=== PATIENT | female | born 1960 | race Two or more races ===

== ENCOUNTER → 2020-05-30 | Outpatient (CLI) | payer OTHER | END | disposition home or self-care (01) | LOC: STAR 08:49 | PROVIDERS: ATTEND Anesthesiology | DX: Z20.828 Contact with and (suspected) exposure to other viral communicable diseases (principal) | CPT/HCPCS: 87635 ==

== ENCOUNTER 2020-06-05 09:56 | Day surgery (SDC) | payer OTHER ==
[~2020-06-05] VITALS: Ht 157.5 cm; Wt 97.4 kg
[2020-06-05 10:12] VITALS: BP 140/89
[2020-06-05] MEDS ORDERED: CHLORHEXIDINE 15 ML UDC MM STA (10:15)
[2020-06-05] MEDS ORDERED: LACTATED RINGERS 1,000 ML IV SCH (10:30)
[2020-06-05] MEDS ORDERED: LIDOCAINE/PF 1%, 30ML ONE (10:31)
[2020-06-05] MEDS ORDERED: BUPIVACAINE/PF-EPI 0.5% 1:200K ONE (10:31)
[2020-06-05] MEDS ORDERED: NO MEDS (10:44)
[2020-06-05] MEDS ORDERED: MIDAZOLAM 1 MG/ML, 2ML ONE (12:16)
[2020-06-05] MEDS ORDERED: FENTANYL PF 100 MCG/2ML ONE ×3 (12:16→13:41)
[2020-06-05] MEDS ORDERED: CEFAZOLIN 1,000 MG ONE (12:17)
[2020-06-05] MEDS ORDERED: ONDANSETRON 2MG/ML, 2ML ONE (12:17)
[2020-06-05] MEDS ORDERED: PROPOFOL 10 MG/ML, 20ML ONE (12:17)
[2020-06-05] MEDS ORDERED: KETOROLAC 30 MG/1 ML ONE (12:54)
[2020-06-05] MEDS ORDERED: OXYcodone 5 MG/5 ML ORAL.SOL UDC ONE (12:54)
[2020-06-05] MEDS ORDERED: DIAZEPAM 5 MG/ML, 2ML IVPush PRN (13:00)
[2020-06-05] MEDS ORDERED: MEPERIDINE/PF 25MG/0.5ML IVPush PRN (13:00)
[2020-06-05] MEDS ORDERED: DIPHENHYDRAMINE 50 MG/ML, 1ML IVPush PRN (13:00)
[2020-06-05] MEDS ORDERED: ACETAMINOPHEN 325 MG TABLET PO PRN (13:00)
[2020-06-05] MEDS ORDERED: PROMETHAZINE 25 MG/ML, 1ML IVPush PRN (13:00)
[2020-06-05] MEDS ORDERED: KETOROLAC 30 MG/1 ML IVPush PRN (13:00)
[2020-06-05] MEDS ORDERED: OXYcodone 5 MG/5 ML ORAL.SOL UDC PO PRN (13:00)
[2020-06-05] MEDS ORDERED: HYDROmorphone 1 MG/ML, 1ML INJ IVPush PRN (13:00)
[2020-06-05] MEDS ORDERED: ONDANSETRON 2MG/ML, 2ML IVPush PRN (13:00)
[2020-06-05] MEDS: FENTANYL PF 100 MCG/2ML IV PRN ×4 (13:25→13:52)
== END 2020-06-05 16:50 | disposition home or self-care (01) ==
LOC: OUT 09:56
PROVIDERS: ATTEND Orthopaedic Surgery
DX: S83.242A Other tear of medial meniscus, current injury, left knee, initial encounter (principal); S83.282A Other tear of lateral meniscus, current injury, left knee, initial encounter; M22.42 Chondromalacia patellae, left knee; Z79.899 Other long term (current) drug therapy; X58.XXXA Exposure to other specified factors, initial encounter; W01.0XXA Fall on same level from slipping, tripping and stumbling without subsequent striking against object, initial encounter; X50.1XXA Overexertion from prolonged static or awkward postures, initial encounter; Y93.01 Activity, walking, marching and hiking; Y92.89 Other specified places as the place of occurrence of the external cause; Y99.0 Civilian activity done for income or pay
CPT/HCPCS: 29880; J0690; J1885; J2250; J2405; J2704; J3010; J7120